=== PATIENT | female | born 1950 | race Caucasian/White ===

== ENCOUNTER 2024-12-28 06:37 | Day surgery (SDC) | payer MEDICARE, OTHER ==
[~2024-12-28] VITALS: Ht 162.6 cm; Wt 68.2 kg
[~2024-12-28 06:37] MED LIST: AZEL137S8 NASAL; FAMO40TA7 PO
[2024-12-28] MEDS ORDERED: ALBUTEROL SULFATE 2.5 MG/0.5 ML NEB SOLUTION NEB ONE (06:38)
[2024-12-28] MEDS ORDERED: LIDOCAINE 4% 50 ML SOLUTION TP ONE (06:38)
[2024-12-28] MEDS ORDERED: LIDOCAINE 2% 11 ML JELLY TP ONE (06:38)
[2024-12-28] MEDS ORDERED: BENZOCAINE 20% 50 MCG/SPRAY 57 GM TP ONE (06:38)
[2024-12-28] MEDS ORDERED: MONT-40 PO (06:53)
[2024-12-28] MEDS ORDERED: OMEP20CA12 PO (06:53)
[2024-12-28] MEDS ORDERED: CHOL200074 PO (06:53)
[2024-12-28] MEDS ORDERED: QUET25TA36 PO (06:53)
[2024-12-28] MEDS ORDERED: FLUT12AE3 PO (06:53)
[2024-12-28] MEDS ORDERED: SODIUM CHLORIDE 0.9% 1,000 ML ONE (07:06)
[2024-12-28] MEDS: SODIUM CHLORIDE 0.9% 1,000 ML IV ONE (07:16)
[2024-12-28] MEDS ORDERED: MIDAZOLAM HCL 2 MG/2 ML VIAL ONE (07:42)
[2024-12-28] MEDS ORDERED: FentaNYL CITRATE PF 100 MCG/2 ML VIAL ONE (07:42)
[2024-12-28 09:40] VITALS: PULSE 76; RESP 16; O2SAT 96
== END 2024-12-28 13:40 | disposition home or self-care (01) ==
LOC: SURGERY 06:37
PROVIDERS: ATTEND Internal Medicine Critical Care Medicine
DX: R05.3 Chronic cough (principal); J38.4 Edema of larynx; B37.0 Candidal stomatitis; Z79.899 Other long term (current) drug therapy
CPT/HCPCS: 31623; 31624; 71045; 87015; 87070; 87101; 87206; 87220; 88108; 94640; J2250; J2919; J3010; J7030; J7613; Z7610